=== PATIENT | male | born 1985 | race Two or more races ===

== ENCOUNTER 2025-01-23 02:04 | Emergency (ER) | payer BC ==
[~2025-01-23] VITALS: Ht 167.6 cm; Wt 74.8 kg
[2025-01-23] MEDS ORDERED: 0.9 % SODIUM CHLORIDE 500 ML IV STA (04:14)
[2025-01-23] MEDS ORDERED: FAMOtidine 10 MG/ML (4ML VIAL) IV PUSH STA (04:15)
[2025-01-23] MEDS ORDERED: ONDANSETRON HCL 2 MG/ML VIAL IV STA (04:15)
[2025-01-23] MEDS ORDERED: KETOROLAC TROMETHAMINE 30 MG VIAL IV STA (04:16)
[2025-01-23] MEDS ORDERED: DIPHENHYDRAMINE HCL 50 MG/ML VIAL 1ML IM STA (04:16)
[2025-01-23] MEDS ORDERED: HALOPERIDOL LACTATE 5 MG/ML AMPUL IM STA (04:16)
[2025-01-23 05:22] LABS: BASO % 0.2 % (0.1-1.2); EOS # 0.03 (0.04-0.54); EOS % 0.2 % (0.7-7.0); LYMPH # 1.78 (1.18-3.74); LYMPH % 13.7 % (19.3-53.1); MEAN PLATELET VOLUME 10.00 fl (9.4-12.4); MONO # 0.69 (0.24-0.82); MONO % 5.3 % (4.7-12.5); NEUT # 10.44 (1.56-6.13); NEUT % 80.3 % (34.0-71.1); RED CELL DISTRIBUTION WIDTH 12.5 % (11.6-14.4)
[2025-01-23 05:52] LABS: ALT/SGPT 45.0 U/L (12-78); AST/SGOT 28.0 U/L (15-37); BILIRUBIN TOTAL 0.54 mg/dL (0.3-1.2); BUN CREA RATIO 12.0 (7.0-25.0); CREATININE SERUM 1.12 mg/dL (0.70-1.30); GFR 72.99; GLOBULINA 3.4 G/DL (2.4-3.5); GLUCOSE FASTING 124.0 mg/dL (65-100); OSMOLALITY SERUM 287.0 MOSM/KG (275-295)
[2025-01-24] MEDS ORDERED: LISINOPRIL2.5 MG PO (12:12)
[2025-01-24] MEDS ORDERED: BIKTARVY 50-201 EACH PO (12:13)
[2025-01-24] MEDS ORDERED: ATORVASTATIN CA10 MG PO (12:13)
== END 2025-01-23 06:30 | disposition home or self-care (01) ==
LOC: ER 02:04
DX: G43.809 Other migraine, not intractable, without status migrainosus (principal)

== ENCOUNTER → 2025-01-24 | Emergency (ER) | payer BC ==
[~2025-01-24] VITALS: Ht 167.6 cm; Wt 74.8 kg
[~2025-01-24] MED LIST: ATORVASTATIN CA10 MG PO; BIKTARVY 50-201 EACH PO; LISINOPRIL2.5 MG PO; ONDANSETRON 4 MG TAB.RAPDIS PO STA; ORPHENADRINE CITRATE 30 MG/ML AMPUL IM STA
[2025-01-24 12:14] VITALS: BP 130/80; O2SAT 95
== END | disposition home or self-care (01) ==
LOC: ER 11:48
DX: R11.0 Nausea (principal); R51.9 Headache, unspecified